=== PATIENT | female | born 1985 | race African-American/Black ===

== ENCOUNTER 2017-03-03 16:49 | Emergency (ER) | payer OTHER ==
[~2017-03-03] VITALS: Ht 170.2 cm; Wt 113.4 kg
--- NOTE | ~2017-03-03 | EKG ---
[address] [place] [address] ELECTROCARDIOGRAM REPORT Name: DEYA GALO Room #: [facility]ITAL[facility]arette[id number] Admission: 03/03/17 Attend Phys: Discharge: Date of : 83 Report #: [id number] THIS REPORT FOR: //name// [facility] ED Test Date: 2017-03-03 Test Time: 18:45:09 Pat Name: DEYA GALO Department: Room: Gender: F [employer] Developer: TONA : 1985 Requested By: Mellissa Chiu Order Number: [id number] MD: Cm Pascual Measurements Intervals [place] Rate: 128 P: 70 SC: 120 QRS: -1 QRSD: 83 T: 45 QT: 305 QTc: 445 Interpretive Statements Sinus tachycardia Consider right atrial enlargement RSR' in V1 or V2, probably normal variant Artifact in lead(s) II,aVL,aVF No previous ECG available for comparison Electronically Signed On 03-03-2017 22:31:25 [employer] by Cm Pascual [email or web address] <ELECTRONICALLY SIGNED> By: Cm Pascual MD 03/03/172230 [id number] Cm Pascual MD /ELOINA
[2017-03-03 18:09] LABS: ABSOLUTE NEUTROPHILS 8.9 thou/uL (1.4-8.2); BASOPHILS 0.4 % (0.0-2.0); EOSINOPHILS 0.4 % (0.0-3.0); HEMATOCRIT 39.2 % (37.0-47.0); HEMOGLOBIN 13.2 gm/dL (12.0-15.0); LYMPHOCYTES 14.8 % (24.0-44.0); MCH 29.5 pg (26.0-34.0); MCHC 33.7 g/dL (28.0-37.0); MCV 87.5 fL (80.0-100.0); PLATELET COUNT 332 thou/uL (150-400); POLYS 78.4 % (36.0-66.0); RBC 4.48 mil/uL (4.20-5.00); RDW 14.4 % (10.5-14.5); WBC 11.3 thou/uL (4.0-11.0)
[2017-03-03 18:25] LABS: ANION GAP 14 mmol/L (7-16); BUN 7 mg/dL (7-18); CALCIUM 8.9 mg/dL (8.5-10.1); CHLORIDE 108 mmol/L (98-107); CO2 21 mmol/L (21-32); CREATININE 0.9 mg/dL (0.6-1.0); GLUCOSE 96 mg/dL (74-106); POTASSIUM 3.9 mmol/L (3.5-5.1); SODIUM 143 mmol/L (136-145)
[2017-03-03 18:30] LABS: ALBUMIN 3.9 g/dL (3.4-5.0); SALICYLATE 4.1 mg/dL (2.8-20.0); SGOT 18 U/L (15-37); SGPT 21 U/L (30-65); TOTAL BILIRUBIN 0.2 mg/dL (<0.1-1.0); TOTAL PROTEIN 7.9 g/dL (6.4-8.2); TROPONIN-I < 0.04 ng/mL (<0.06)
[2017-03-03 19:51] LABS: URINE BILIRUBIN NEGATIVE (Negative); URINE BLOOD 3+ (Negative); URINE GLUCOSE-RANDOM* NEGATIVE (Negative); URINE KETONES NEGATIVE (Negative); URINE LEUKOCYTES 2+ (Negative); URINE NITRITE NEGATIVE (Negative); URINE PROTEIN (DIPSTICK) 1+ (Negative); URINE UROBILINOGEN 0.2 E.U./dl (0.2-1.0)
[2017-03-03 19:57] LABS: URINE CLARITY HAZY; URINE COLOR YELLOWISH RED
[2017-03-03 20:00] LABS: CASTS None Seen /LPF (None Seen); CRYSTALS None Seen /LPF (None Seen); SQUAMOUS 0-3 Few /LPF (0-3); URINE RBC >20 Many /HPF (0-2); URINE WBC >25 Many /HPF (0-5)
[2017-03-03 20:07] LABS: AMP/METHAMP Negative (Negative); BARBITURATES Negative (Negative); BENZODIAZEPINES Negative (Negative); COCAINE POSITIVE (Negative); METHADONE Negative (Negative); OPIATES Negative (Negative); PCP Negative (Negative)
== END 2017-03-04 03:45 | disposition home or self-care (01) ==
LOC: ER 16:49 → EDBD 16:49 → ER 03-04 03:45
PROVIDERS: Nurse Practitioner Family
DX: R45.851 Suicidal ideations (principal); F10.959 Alcohol use, unspecified with alcohol-induced psychotic disorder, unspecified; Y90.8 Blood alcohol level of 240 mg/100 ml or more